=== PATIENT | male | born 1955 | race Caucasian/White ===

== ENCOUNTER → 2021-12-23 | Outpatient (CLI) | payer OTHER, SELFPAY ==
[2021-12-23 17:54] LABS: Synovial Fld Mononuclear WBC # 0.608 10^3/ul; Synovial Fld Mononuclear WBC % 57.8 %; Synovial Fld Polynuclear WBC # 0.444 10^3/uL; Synovial Fld Polynuclear WBC % 42.2 %
[2021-12-23 20:50] LABS: Lymph 9 %; Monocyte /Synovial Fluid 30 %; Neutrophil 56 % (0-25); Other Cell /Synovial Fluid 5 %
[2021-12-23 20:51] LABS: RBC /Synovial Fluid 0.007 10^6/uL (0)
[2021-12-23 20:53] LABS: AUTO B FLUID DILUENT BKGD CT WBC <0.1 RBC <0.01 (W<.1,R<.01)
[2021-12-23 20:54] LABS: Appearance /Synovial Fluid Hazy (CLEAR); Color / Synovial Fluid Yellow (Pale Yellow); Source / Synovial Fluid RIGHT KNEE
[2021-12-24 13:22] LABS: Pathologist Comment Reviewed
[2021-12-24 15:27] LABS: Body Fluid QC Type(s) BF1
== END | disposition home or self-care (01) ==
LOC: LABSPEC 13:49
PROVIDERS: PCP Internal Medicine Infectious Disease; Referring Provider Specialist; Visit Provider Specialist
DX: Z96.653 Presence of artificial knee joint, bilateral (principal)
CPT/HCPCS: 87015; 87070; 87075; 87101; 87116; 87205; 87206; 89050; 89051